=== PATIENT | male | born 1955 | race Caucasian/White ===

== ENCOUNTER 2024-11-22 08:08 | Day surgery (SDC) | payer MEDICARE, SELFPAY ==
[2024-11-22] VITALS (14 sets, daily range): BP systolic 119–147; BP diastolic 73–87; PULSE 50–66; RESP 16–18; TEMP 36.2–36.8; O2SAT 96–98; BMI 29.9
[2024-11-22] MEDS: SODIUM CHLORIDE 0.9 % (FLUSH) 10 ML SYRINGE IVF (08:45)
[2024-11-22] MEDS: LACTATED RINGERS 1000 ML 1,000 ML 100 ML IV (08:45)
--- NOTE | 2024-11-22 10:16 | P.ANES_ITS ---
Anesthesia Charges Start Date/Time Anesthesia Start Date: 11/22/24 Anesthesia Start Time: 09:27 Stop Date/Time Anesthesia Stop Date: 11/22/24 Anesthesia Stop Time: 10:17 Summary Extremes of Age - Over 70 or under 1: ACCOUNT SUPPORT REP Coding CPT Codes CPT Codes: ANESTH PROCEDURE ON MOUTH - 45424 ([id number]) P2 - PATIENT W/MILD SYST DISEASE, QZ - ACCOUNT SUPPORT REP SVC W/O ANIMAL CARE SPECIALIST BY Additional Codes: Summary - Extremes of Age - Over 70 or under 1: ACCOUNT SUPPORT REP ([id number])
--- NOTE | 2024-11-22 10:16 | W.ANESCHARGE ---
Anesthesia Charges Start Date/Time Anesthesia Start Date: 11/22/24 Anesthesia Start Time: 09:27 Stop Date/Time Anesthesia Stop Date: 11/22/24 Anesthesia Stop Time: 10:17 Summary Extremes of Age - Over 70 or under 1: FOOD PORTER Coding CPT Codes CPT Codes: ANESTH PROCEDURE ON MOUTH - 49559 ([id number]) P2 - PATIENT W/MILD SYST DISEASE, QZ - FOOD PORTER SVC W/O BLOCK SEALER BY Additional Codes: Summary - Extremes of Age - Over 70 or under 1: FOOD PORTER ([id number])
--- NOTE | 2024-11-22 10:38 | P.ENTPROC_ITS ---
Procedure Note Date of procedure: 11/22/24 Procedure: Preop diagnosis 2 palatal papillomas Postoperative diagnosis is 1 large contiguous palatal verrucoid lesion that extended onto the posterior soft palate Procedure is excision of required lesion mid right soft palate as well as excisi on of a margin of tissue beneath the papilloma Under general trach anesthesia patient was prepped draped usual fashion. The McIvor mouth gag was inserted the tongue retracted forward. The brute quite lesion was observed and on further inspection extended onto the posterior act aspect of the soft palate was visible from the anteriorly as 2 separate lesions but was in neck fact 1 contiguous lesion. This was excised with a 2 mm margin utilizing needlepoint cautery and a deep excision. I then removed a cuff of tissue beneath the excision site and sent for pathology as well. Bleeding was controlled with electro suction cautery. The patient procedure was taken recovery satisfactory condition. Blood loss was less than 10 mL. Surgeon: Joao Cocrhan MD
== END 2024-11-22 11:52 | disposition home or self-care (01) ==
LOC: OR 08:09
PROVIDERS: PCP Family Medicine; Visit Provider Otolaryngology
PROC: (CPT 42100; principal; 2024-11-22 09:30)
DX: D10.6 Benign neoplasm of nasopharynx (principal)
CPT/HCPCS: 42104; 00170; 88305; 99100; J0330; J1100; J2405; J2704; J3010; J7120